=== PATIENT | male | born 1995 | race Caucasian/White ===

== ENCOUNTER → 2016-11-20 | Outpatient (CLI) | payer OTHER | LOC: BMCIMAGING 14:37 | PROVIDERS: ATTEND Nurse Practitioner Adult Health | DX: M79.642 Pain in left hand (principal); M25.532 Pain in left wrist ==

== ENCOUNTER 2016-12-16 12:50 | Emergency (ER) | payer OTHER ==
--- NOTE | 2016-12-16 13:12 | EDPHY ---
H & P Smoking Status: Never smoked <Fly Castaneda Roland - Last Filed: 12/16/16 16:25> <Roxanne Mcgrath - Last Filed: 12/16/16 17:10> Time Seen by Provider: 12/16/16 12:52 HPI/ROS: Chief complaint. Shortness of breath HPI. 21-year-old male here by EMS with shortness of breath after running the [place]. He was finishing and developed right posterior shoulder blade pain and inability to take a deep breath. Pain is worse with deep breathing. He slightly short of breath. No similar symptoms previously. Not sick including no fever or cough. He was well until he started running this morning. No unusual leg pain or swelling. ROS Constitutional. no fever/chills, no weakness Eyes. no problems with vision ENT. no sore throat, no nasal drainage Cardiovascular. Right posterior chest pain Respiratory. Short of breath Abdominal. no abdominal pain, no nausea/vomiting, no diarrhea . no problems urinating MS. no calf pain/swelling, no neck/back pain, no joint pain Skin. no rash Lymph. no swollen glands Neuro. no headache, no dizziness, no difficulty walking or with speech (Fly Castaneda) Past Medical/Surgical History: Psychosis (Fly Castaneda) Social History: Single, nonsmoker, no alcohol (Fly Castaneda) Physical Exam: General Appearance: Alert well-developed male mild distress vital signs are stable Eyes: Pupils equal and round no pallor or injection. ENT, Mouth: Mucous membranes are moist. Respiratory: There are no retractions. Decreased breath sounds on the right Cardiovascular: Regular rate and rhythm. Gastrointestinal: Abdomen is soft and nontender, no masses, bowel sounds normal. Neurological: Awake and alert, sensory and motor exams grossly normal. Skin: Warm and dry, no rashes. Musculoskeletal: Neck is supple nontender. Extremities symmetrical, full range of motion. Psychiatric: Patient is oriented X 3, there is no agitation. (Fly Castaneda) Constitutional: Initial Vital Signs Temperature (C) 36.9 C 12/16/16 12:53 Heart Rate 93 12/16/16 12:53 Respiratory Rate 18 12/16/16 12:53 Blood Pressure 121/79 H 12/16/16 12:53 O2 Sat (%) 98 12/16/16 12:53 O2 Delivery Mode Room Air Allergies/Adverse Reactions: No Known Allergies Allergy (Unverified 06/25/16 20:20) Home Medications: Medication Instructions Recorded Seroquel 06/25/16 Medical Decision Making <Fly Castaneda - Last Filed: 12/16/16 16:25> <Roxanne Mcgrath - Last Filed: 12/16/16 17:10> - Diagnostics EKG Interpretation: EKG interpreted by me shows normal sinus rhythm normal interval and axis. QRS is normal there is no significant ST elevation or depression. No arrhythmia. The rate is 80 (Fly Castaneda) Imaging Results: Imaging Impressions Chest X-Ray 12/16/16 13:11 Impression: Clear lungs. Negative portable chest. Chest x-ray inspected by me using both inspiratory and expiratory film was interpreted by me is normal (Fly Castaneda) Procedures: IV normal saline, monitor (Fly Castaneda) ED Course/Re-evaluation: Recheck at 2:40 p.m. patient is stable. We will give him an albuterol updraft. The patient and I discussed imaging study results, treatment plan, criteria for return. Patient expresses understanding and agreement 3:15 p.m. patient's EKG is normal but D-dimer is markedly elevated as well as white blood cell count is markedly elevated. CT angiogram is ordered. I discussed this with the patient and father. They expressed understanding and agreement (Fly Castaneda) 1500: Care of this patient was transferred to in by Dr. Castaneda at change of shift. 1652: CTA results reported to me by Dr. Coffey. I discussed these findings with the patient. (Roxanne Mcgrath) Care Turn Over: Care to Dr. Mcgrath at 3:20 p.m. (Fly Castaneda) - Data Points Laboratory Results: Laboratory Results 12/16/16 12:59 12/16/16 12:59 12/16/16 12/16/16 12/16/16 12:59 12:59 12:59 WBC 15.55 10^3/uL H 10^3/uL (3.80-9.50) RBC 5.67 10^6/uL 10^6/uL (4.40-6.38) Hgb 17.4 g/dL g/dL (13.7-17.5) Hct 52.1 % H % (40.0-51.0) MCV 91.9 fL fL (81.5-99.8) MCH 30.7 pg pg (27.9-34.1) MCHC 33.4 g/dL g/dL (32.4-36.7) RDW 12.4 % % (11.5-15.2) Plt Count 243 10^3/uL 10^3/uL (150-400) MPV 12.8 fL H fL (8.7-11.7) Neut % (Auto) 90.4 % H % (39.3-74.2) Lymph % (Auto) 5.2 % L % (15.0-45.0) [place] % (Auto) 3.5 % L % (4.5-13.0) Eos % (Auto) 0.1 % L % (0.6-7.6) Baso % (Auto) 0.3 % % (0.3-1.7) Nucleat RBC Rel Count 0.0 % % (0.0-0.2) Absolute Neuts (auto) 14.06 10^3/uL H 10^3/uL (1.70-6.50) Absolute Lymphs (auto) 0.81 10^3/uL L 10^3/uL (1.00-3.00) Absolute Monos (auto) 0.55 10^3/uL 10^3/uL (0.30-0.80) Absolute Eos (auto) 0.01 10^3/uL L 10^3/uL (0.03-0.40) Absolute Basos (auto) 0.04 10^3/uL 10^3/uL (0.02-0.10) Absolute Nucleated RBC 0.00 10^3/uL 10^3/uL (0-0.01) Immature Gran % 0.5 % % (0.0-1.1) Immature Gran # 0.08 10^3/uL 10^3/uL (0.00-0.10) D-Dimer 3.17 ug/mLFEU H ug/mLFEU (0.00-0.50) Sodium 143 mEq/L mEq/L (134-144) Potassium 4.0 mEq/L mEq/L (3.5-5.2) Chloride 104 mEq/L mEq/L (97-110) Carbon Dioxide 24 mEq/l mEq/l (22-31) Anion Gap 15 mEq/L mEq/L (8-16) BUN 12 mg/dL mg/dL (7-23) Creatinine 1.3 mg/dL mg/dL (0.7-1.3) Estimated GFR > 60 Glucose 99 mg/dL mg/dL (70-100) Calcium 10.5 mg/dL H mg/dL (8.5-10.4) Troponin I < 0.012 ng/mL ng/mL (0-0.034) Medications Given: Discontinued Medications Albuterol (Proventil Neb) 3 ml IH EDNOW ONE Stop: 12/16/16 14:44 Last Admin: 12/16/16 15:00 Dose: 3 ml Sodium Chloride (Ns) 1,000 mls @ 0 mls/hr IV ONCE ONE PRN Reason: Wide Open Stop: 12/16/16 14:47 Last Admin: 12/16/16 15:00 Dose: 1,000 mls Ketorolac Tromethamine (Toradol) 30 mg IVP EDNOW ONE Stop: 12/16/16 14:48 Last Admin: 12/16/16 15:16 Dose: Not Given Departure <Fly Castaneda - Last Filed: 12/16/16 16:25> <Roxanne Mcgrath - Last Filed: 12/16/16 17:10> - Departure Disposition: Home, Routine, Self-Care Clinical Impression: Pneumomediastinum Pneumothorax Qualifiers: Pneumothorax type: spontaneous, primary Qualified Code(s): J93.11 - Primary spontaneous pneumothorax Condition: Good Instructions: Spontaneous Pneumothorax (ED), Dyspnea (ED) Additional Instructions: Please avoid strenuous activity for the next several days. Avoid Valsalva maneuvers, strenuous coughing, do not smoke marijuana. Okay to use Tylenol or ibuprofen if needed for discomfort. Return to the emergency department immediately if you develope worsening shortness of breath or chest pain, lightheadedness, dizziness, back pain or other concerns. You may resume regular activities when you are no longer feeling short of breath. Referrals: Noah Denis MD [Medical Doctor] - As per Instructions (Follow up with Dr. Denis as needed.) Report Scribed for: Roxanne Mcgrath Report Scribed by: Jessica Araiza Date of Report: 12/16/16 Time of Report: 15:03 <Roxanne Mcgrath M - Last Filed: 12/16/16 17:10>
[2016-12-16] MEDS ORDERED: ALBUTEROL 3 ML DEYVIAL IH ONE (14:43)
[2016-12-16] MEDS ORDERED: NS 1,000 ML IV ONE (14:46)
[2016-12-16] MEDS ORDERED: KETOROLAC 30 MG/1 ML SDV IVP ONE (14:47)
[2016-12-16 14:56] LABS: % IMMATURE GRANULYOCYTES 0.5 % (0.0-1.1); ABSOLUTE IMMATURE GRANULOCYTES 0.08 10^3/uL (0.00-0.10); ADD DIFF? NO; ADD MORPH? NO; ADD SCAN? NO; ATYPICAL LYMPHOCYTE FLAG 0 (0-99); FRAGMENT RBC FLAG 0 (0-99); HEMATOCRIT 52.1 % (40.0-51.0); HEMOGLOBIN 17.4 g/dL (13.7-17.5); LEFT SHIFT FLG 0 (0-99); LIPEMIA HEMOLYSIS FLAG 80 (0-99); MEAN CELL HEMOGLOBIN 30.7 pg (27.9-34.1); MEAN CELL HEMOGLOBIN CONCENTR. 33.4 g/dL (32.4-36.7); MEAN CELL VOLUME 91.9 fL (81.5-99.8); MEAN PLATELET VOLUME 12.8 fL (8.7-11.7); PLATELET CLUMPS FLAG 10 (0-99); PLATELET COUNT 243 10^3/uL (150-400); RED BLOOD CELL COUNT 5.67 10^6/uL (4.40-6.38); RED CELL DISTRIBUTION WIDTH 12.4 % (11.5-15.2)
[2016-12-16 15:00] LABS: ANION GAP 15 mEq/L (8-16); CALCIUM 10.5 mg/dL (8.5-10.4); CARBON DIOXIDE 24 mEq/l (22-31); CHLORIDE 104 mEq/L (97-110); CREATININE 1.3 mg/dL (0.7-1.3); GLOMERULAR FILTRATION RATE > 60; GLUCOSE 99 mg/dL (70-100); SODIUM 143 mEq/L (134-144)
[2016-12-16 15:12] LABS: TROPONIN I < 0.012 ng/mL (0-0.034)
--- NOTE | 2016-12-16 15:12 | CPEKG ---
Heart Rate: 80 RR Interval: 750 P-R Interval: 160 QRSD Interval: 96 QT Interval: 384 QTC Interval: 443 P [place]: 73 QRS [place]: 73 T Wave [place]: 54 EKG Severity - NORMAL ECG - EKG Impression: SINUS RHYTHM Electronically Signed By: Fly Castaneda 16-Dec-2016 15:38:19
[2016-12-16] MEDS ORDERED: IOPAMIDOL (ISOVUE 370) 100 ML BTL IV ONE (15:44)
[2016-12-16 16:34] VITALS: BP 117/77; RESP 16
[2016-12-16 17:19] VITALS: PULSE 98; TEMP 97.9; O2SAT 96
== END 2016-12-16 17:19 | disposition home or self-care (01) ==
LOC: EDUNIT#
DX: J98.2 Interstitial emphysema (principal); J93.11 Primary spontaneous pneumothorax
CPT/HCPCS: J1885; Q9967

== ENCOUNTER → 2018-06-24 | Outpatient (CLI) | payer OTHER | LOC: BMCIMAGING 16:39 | PROVIDERS: ATTEND Internal Medicine | DX: N50.3 Cyst of epididymis (principal) ==